=== PATIENT | female | born 1940 | race Caucasian/White ===

== ENCOUNTER 2019-05-04 06:31 | Emergency (ER) | payer MEDICARE, OTHER ==
--- NOTE | 2019-05-04 07:24 | EDM.PDOC ---
<Srinath Yadav - Last Filed: 05/04/19 07:56> ED HPI GENERAL MEDICAL PROBLEM - General Chief Complaint: Lower Extremity Injury/Pain Stated Complaint: SWOLLEN RIGHT ANKLE Time Seen by Provider: 05/04/19 07:20 Source of Information: Reports: Patient History Limitations: Reports: No Limitations - History of Present Illness INITIAL COMMENTS - FREE TEXT/NARRATIVE: 78-year-old female developed fairly sudden onset right ankle pain about 30 hours ago after a 4 hour flight. It's very painful behind her calf and around her ankle, she has no memory of bumping it or hurting it. She's tried wearing a brace and wrapping, elevating and nothing seems to be helping and now she is worried about a blood clot. She is on Plavix. No fevers or chills, no other joint pains. She doesn't remember getting bit. Onset: Sudden Duration: Hour(s): (30 hours ago) Location: Reports: Lower Extremity, Right Associated Symptoms: Reports: No Other Symptoms Right Ankle Pain Score (Numeric/FACES): 9 - Related Data Allergies Allergy/AdvReac Type Severity Reaction Status Date / Time Sulfa (Sulfonamide Allergy Rash Verified 05/04/19 06:50 Antibiotics) Home Meds: Home Meds Aspirin [Halfprin] 2 tab PO DAILY 05/04/19 [History] Blue-Green Algae [Spirulina] 6 tab PO DAILY 05/04/19 [History] Clopidogrel [Plavix] 75 mg PO DAILY 05/04/19 [History] Coconut Oil 4 tab PO DAILY 05/04/19 [History] Cyanocobalamin/Cobamamide [B-12 5,000 MCG Sublingual] 1 tab SL DAILY 05/04/19 [ History] Gluc De [place]/Msm/Magnesium/Vit C [Glucosamine Complex-MSM] 1 tab PO DAILY 05/04/19 [ History] Lutein/Minerals/Vit A,C & E [Ocuvite] 1 tab PO DAILY 05/04/19 [History] Magnesium Oxide [Magnesium] 400 mg PO DAILY 05/04/19 [History] Metoprolol Succinate [Toprol XL] 25 mg PO BID 05/04/19 [History] Multivitamin [Multi-Vitamin Daily] 1 tab PO DAILY 05/04/19 [History] Pantoprazole [ProTONIX] 40 mg PO DAILY 05/04/19 [History] Simvastatin 20 mg PO DAILY 05/04/19 [History] Past Medical History HEENT History: Reports: Cataract, Hard of Hearing Cardiovascular History: Reports: High Cholesterol, Hypertension Respiratory History: Reports: Sleep Apnea Gastrointestinal History: Reports: GERD, Hemorrhoids [employer] History: Reports: Musculoskeletal History: Reports: Arthritis, Fibromyalgia Neurological History: Reports: TIA Hematologic History: Reports: Anticoagulation Therapy, B12 Deficiency Dermatologic History: Reports: Cellulitis - Infectious Disease History Infectious Disease History: Reports: C-Difficile, Measles - Past Surgical History HEENT Surgical History: Reports: Adenoidectomy, Cataract Surgery, Tonsillectomy , Other (See Below) Other HEENT Surgeries/Procedures: implants GI Surgical History: Reports: Appendectomy, Colonoscopy Female Surgical History: Reports: Hysterectomy Musculoskeletal Surgical History: Reports: Arthroscopic Knee, Other (See Below) Social & Family History - Tobacco Use Smoking Status *Q: Never Smoker - Caffeine Use Caffeine Use: Reports: None - Recreational Drug Use Recreational Drug Use: No Review of Systems - Review of Systems Review Of Systems: See Below Constitutional: Denies: Fever Respiratory: Denies: Shortness of Breath Cardiovascular: Denies: Chest Pain GI/Abdominal: Denies: Abdominal Pain Skin: Denies: Bruising Neurological: Denies: Paresthesia ED EXAM, GENERAL - Physical Exam Exam: See Below Exam Limited By: No Limitations General Appearance: Alert, No Apparent Distress Respiratory/Chest: No Respiratory Distress Extremities: Other (She has some pitting edema both the foot and ankle on the right side that starts just proximal to the ankle. Palpation of the top of the foot and the medial malleolus is very tender. There is some tenderness to palpation of the gastrocnemius. There is no redness or warmth.) Course - Vital Signs Last Recorded V/S: Last Vital Signs Temp 36.4 C 05/04/19 07:03 Pulse 84 05/04/19 07:03 Resp 19 05/04/19 07:03 BP 165/96 H 05/04/19 07:03 Pulse Ox 97 05/04/19 07:03 - Orders/Labs/Meds Orders: Active Orders 24 hr Category Date Time Status VL Duplex Lwr Ext Veins Ltd Rt [US] Stat Exams 05/04/19 07:59 Taken Meds: Medications Discontinued Medications Generic Name Dose Route Start Last Admin Trade Name Freq PRN Reason Stop Dose Admin Triamcinolone Acetonide 40 mg 05/04/19 08:49 05/04/19 08:55 Kenalog-40 IM 05/04/19 08:50 40 mg ASDIRECTED ONE Administration - Re-Assessments/Exams Free Text/Narrative Re-Assessment/Exam: 05/04/19 07:23 An x-ray of the ankle will be obtained, likely followed by an ultrasound to rule out DVT. X-ray showed significant spurring arthritis, an ultrasound will be done of the right lower extremity and care turned over to Dr. Kruse for result. Departure - Departure Disposition: Home, Self-Care 01 Clinical Impression: Arthritis of ankle, right - Discharge Information Referrals: PCP,None [Primary Care Provider] - Forms: ED Department Discharge Care Plan Goals: minimal wt bearing, moist wrm heat to the ankle, elevate, naprosyn 500mg bid for inflamation, norco 5/325 q6h prn for severe pain so she can rest, #8 <Amy Kruse - Last Filed: 05/04/19 09:06> Course - Orders/Labs/Meds Meds: Medications Discontinued Medications Generic Name Dose Route Start Last Admin Trade Name Freq PRN Reason Stop Dose Admin Triamcinolone Acetonide 40 mg 05/04/19 08:49 05/04/19 08:55 Kenalog-40 IM 05/04/19 08:50 40 mg ASDIRECTED ONE Administration - Re-Assessments/Exams Free Text/Narrative Re-Assessment/Exam: 05/04/19 09:03 pt had a US of her rt leg which was neg for clot. She appears to have a acute inflamation of her rt ankle area. She was given kenalog 40mg im. She will be placed on naprosyn 500mg bid. Departure - Departure Time of Disposition: 09:04 Condition: Fair
--- NOTE | 2019-05-04 07:58 | CRLCR ---
INDICATION: Pain and swelling. TECHNIQUE: Three views of the right ankle. COMPARISON: None. IMPRESSION: There is mild soft tissue swelling about the ankle. There are few ossicles seen adjacent to both the medial and lateral malleoli, which appear relatively well corticated and likely are related to remote tract. No acute fracture is identified. Ankle mortise is symmetric. Low-grade degenerative changes of the tibiotalar joint are noted. Dictated by Pedro Kruse MD @ 05/04/2019 7:56:41 AM Dictated by: Pedro Kruse MD @ 05/04/2019 07:56:52 (Electronically Signed)
[2019-05-04] MEDS ORDERED: Triamcinolone Acetonide 40 MG/ML 1 ML MDV IM ONE (08:49)
--- NOTE | 2019-05-04 09:10 | CRLUS ---
INDICATION: Right leg pain and swelling. COMPARISON: None. TECHNIQUE: A compression venous ultrasound exam was performed of the right lower extremity using mijares-scale imaging, color Doppler and spectral Doppler analysis. FINDINGS: Sonographic imaging of the right lower extremity demonstrates normal compressibility and color Doppler venous blood flow within the common femoral vein, deep femoral vein, and the proximal greater saphenous vein. Within the thigh, the femoral vein is patent and compressible. At a lower level, the popliteal and posterior tibial veins also show normal compressibility and color Doppler venous blood flow. Limited imaging of the contralateral groin demonstrates a normal spectral waveform and color Doppler venous blood flow within the left common femoral vein. IMPRESSION: Normal venous ultrasound exam. No evidence of deep vein thrombosis within the right lower extremity. Dictated by Ju Ballesteros MD @ May 04 2019 9:07AM Signed by Dr. Ju Ballesteros @ May 04 2019 9:07AM
== END 2019-05-04 09:21 | disposition home or self-care (01) ==
LOC: JP.ED 06:31
DX: M19.071 Primary osteoarthritis, right ankle and foot (principal); I10 Essential (primary) hypertension; K21.9 Gastro-esophageal reflux disease without esophagitis; Z88.2 Allergy status to sulfonamides; Z79.82 Long term (current) use of aspirin; Z79.899 Other long term (current) drug therapy; Z98.890 Other specified postprocedural states; Z90.49 Acquired absence of other specified parts of digestive tract; Z90.710 Acquired absence of both cervix and uterus
CPT/HCPCS: 73610; 93971; 96372; 99284; J3301